=== PATIENT | female | born 2000 | race Caucasian/White ===

== ENCOUNTER 2023-01-30 18:14 | Emergency (ER) | payer MEDICAID ==
[~2023-01-30] VITALS: Ht 162.6 cm; Wt 77.1 kg
[2023-01-30 18:15] VITALS: BP_SYST 108; PULSE 65; RESP 19; TEMP 98.2; O2SAT 97
[2023-01-30] MEDS ORDERED: BUPIVACAINE /PF 0.25% 30 ML VIAL INJ ONE (19:10)
[2023-01-30] MEDS ORDERED: BUPIVACAINE /PF 0.25% 10 ML VIAL INJ ONE (19:15)
[2023-01-30] MEDS ORDERED: IBUP-1969 PO (19:27)
[2023-01-30] MEDS ORDERED: ACET-2634 PO (19:27)
[2023-01-30] MEDS ORDERED: AUG875 PO (19:28)
[2023-01-30] MEDS ORDERED: HYDROcodone/ACETAMIN 5-325 MG TAB (NORCO/ VICODIN) PO ONE (19:30)
[2023-01-30 19:39] VITALS: BP_SYST 116; PULSE 86; RESP 20; TEMP 97.4; O2SAT 98
== END 2023-01-30 19:40 | disposition home or self-care (01) ==
LOC: SED 18:14
DX: K04.7 Periapical abscess without sinus (principal); K08.89 Other specified disorders of teeth and supporting structures; Z79.899 Other long term (current) drug therapy
CPT/HCPCS: 64450; 99284; J3490

== ENCOUNTER 2023-02-01 14:50 | Emergency (ER) | payer MEDICAID ==
[~2023-02-01 14:50] MED LIST: ACET-2634 PO; AUG875 PO; IBUP-1969 PO
== END 2023-02-01 20:30 | disposition left against medical advice (07) ==
LOC: SED 14:50
DX: R22.0 Localized swelling, mass and lump, head (principal); Z53.21 Procedure and treatment not carried out due to patient leaving prior to being seen by health care provider

== ENCOUNTER 2023-03-27 15:49 | Emergency (ER) | payer MEDICAID ==
[~2023-03-27] VITALS: Ht 160 cm; Wt 77.1 kg
[2023-03-27 15:55] VITALS: BP_SYST 102; PULSE 64; RESP 18; TEMP 97.3; O2SAT 98
[2023-03-27 16:57] LABS: BASOPHILS % (AUTO) 0.3 % (0.0-2.0); EOSINOPHILS % (AUTO) 0.1 % (0.0-4.0); HEMATOCRIT 39.9 % (36-48); HEMOGLOBIN 13.1 g/dL (12.0-16.0); LYMPHOCYTES # (AUTO) 1.6 K/uL (1.0-5.5); MEAN CORPUSCULAR HEMOGLOBIN 29 pg (27-31); MEAN CORPUSCULAR HGB CONC 33 % (32-36); MEAN CORPUSCULAR VOLUME 89 fL (79.0-98.0); MONOCYTES # (AUTO) 0.3 K/uL (0.0-1.0); MONOCYTES % (AUTO) 3.5 % (1.7-9.3); NEUTROPHILS # (AUTO) 5.9 K/uL (1.8-7.7); NEUTROPHILS % (AUTO) 75.1 % (40.0-70.0); PLATELET COUNT (AUTO) 232 K/uL (130-430); RED BLOOD CELL COUNT(AUTO) 4.46 MIL/uL (4.2-6.2); RED CELL DISTRIBUTION WIDTH 13.9 % (9.0-15.0); WHITE BLOOD COUNT (AUTO) 7.8 K/uL (4.8-10.8)
[2023-03-27 17:34] LABS: CALCIUM 9.5 mg/dL (8.4-11.0); CREATININE 0.5 mg/dL (0.55-1.30)
[2023-03-27 17:35] LABS: POTASSIUM 4.5 mmol/L (3.5-5.1)
[2023-03-27] MEDS ORDERED: FAMOTIDINE 20 MG TABLET PO ONE (18:45)
[2023-03-27] MEDS ORDERED: MAG HYDROX/AL HYDROX/SIMETH 30 ML, LIDOCAINE VISCOUS 2% 15ML (PO) 15 ML, DICYCLOMINE HC... PO ONE ×3 (18:45)
[2023-03-27] MEDS ORDERED: ONDANSETRON 4 MG ODT TAB PO ONE (18:45)
[2023-03-27 18:56] LABS: INFLUENZA TYPE A Negative (NEGATIVE); INFLUENZA TYPE B NEGATIVE (NEGATIVE)
[2023-03-27 19:09] LABS: BILIRUBIN,URINE 1+ (NEGATIVE); BLOOD, URINE 2+ (NEGATIVE); CLARITY/URINE CLOUDY (CLEAR); COLOR,URINE YELLOW (YELLOW); GLUCOSE,URINE NEGATIVE (NEGATIVE); KETONES,URINE 3+ (NEGATIVE); LEUKOCYTE ESTERASE ,URINE 2+ (NEGATIVE); NITRITE, URINE NEGATIVE (NEGATIVE); PROTEIN URINE 1+ (NEGATIVE); UROBILINOGEN,URINE 0.2 (0.2-1.0)
[2023-03-27] MEDS ORDERED: cephALEXin 500 MG CAPSULE PO ONE (19:30)
[2023-03-27] MEDS ORDERED: CEPH-548 PO (19:35)
[2023-03-27] MEDS ORDERED: METO-290 PO (19:36)
[2023-03-27] MEDS ORDERED: DOXY1TAB3 PO (19:36)
[2023-03-27 19:47] LABS: BARBITURATE, URINE NEGATIVE (NEG <=200); BENZODIAZEPINE, URINE NEGATIVE (NEG <=150); CANNABINOID, URINE POSITIVE (NEG <=50); COCAINE, URINE NEGATIVE (NEG <=150); METHAMPHETAMINES SCREEN,URINE NEGATIVE (NEG <=500); OPIATE, URINE NEGATIVE (NEG <=100); PHENCYCLIDINE SCREEN,URINE NEGATIVE (NEG <=25); URINE AMPHETAMINE NEGATIVE (NEG <=500); URINE METHADONE NEGATIVE (NEG <=200); URINE OXYCODONE SCREEN NEGATIVE (NEG <=100)
[2023-03-27 19:48] LABS: UR TRICYCLIC ANTIDEPRESSANTS NEGATIVE (NEG <=300)
[2023-03-27 19:56] LABS: BACTERIA,URINE MODERATE /HPF (None Seen); RBC,URINE 20-50 /HPF (0-3); WBC,URINE 20-50 /HPF (0-3)
[2023-03-27 20:05] VITALS: BP_SYST 104; PULSE 80; RESP 18; TEMP 97.7; O2SAT 97
== END 2023-03-27 20:05 | disposition home or self-care (01) ==
LOC: SED 15:49
DX: O23.41 Unspecified infection of urinary tract in pregnancy, first trimester (principal); N39.0 Urinary tract infection, site not specified; A08.4 Viral intestinal infection, unspecified; R10.2 Pelvic and perineal pain; Z79.899 Other long term (current) drug therapy; Z3A.01 Less than 8 weeks gestation of pregnancy; Z20.822 Contact with and (suspected) exposure to COVID-19
CPT/HCPCS: 99284; 87426; 80307; 80048; 84702; 83690; 85025; 87086; 36415; 81025; 87804 ×2; 81001; Q0162; J2001; 81000; 81015